=== PATIENT | male | born 1980 | race Two or more races ===

== ENCOUNTER 2019-06-08 14:00 | Emergency (ER) | payer MEDICAID, OTHER ==
[~2019-06-08] VITALS: Ht 177.8 cm; Wt 117.9 kg
[2019-06-08 14:14] VITALS: BP 123/92
[2019-06-08] MEDS ORDERED: IBUPROFEN 800 MG TAB PO ONE (17:45)
== END 2019-06-08 18:34 | disposition home or self-care (01) ==
LOC: ER 14:00
DX: M25.512 Pain in left shoulder (principal)
CPT/HCPCS: 73030